=== PATIENT | female | born 1985 | race Caucasian/White ===

== ENCOUNTER 2016-08-04 11:20 | Inpatient (IN) | payer BC ==
[~2016-08-04] VITALS: Ht 160 cm; Wt 78.9 kg
--- NOTE | ~2016-08-04 | FD ---
ADMIT: 08/04/2016 RM/LOC: 221 [facility] MR#: [id number] [id number] [address] KITA BAIG [address] [place], [place] [id number] Final Diagnosis SEX: F AGE: 30 : 1985 ADMISSION DATE: 08/04/2016 DISCHARGE DATE: 08/06/2016 FINAL DIAGNOSES: Status post spontaneous vaginal delivery at term. PROCEDURE: 08/04/2016 Spontaneous vaginal delivery with delivery of viable male , 8 lb 10 oz, Apgars 8/9. Key Griggs MD/ betty JOB #: [id number] CC: Leandra Valente MD, Attending Physician FAMILY PHYSICIAN, Family Physician
--- NOTE | ~2016-08-04 | HP ---
ADMIT: 08/04/2016 RM/LOC: 221 [facility] MR#: [id number] [address] [address] EHSAN BAIGDuc Larry [address] [place], [place] [address] History and Physical SEX: F AGE: 30 : 1985 DATE OF SERVICE: CHIEF COMPLAINT: Uterine contractions. HISTORY OF PRESENT ILLNESS: This is a 30-year-old female, 2, para 1-0- 0-1, who presents to the [facility] with an intrauterine at 38- 3/7th weeks' gestation with estimated date of confinement of 08/15/2016. Her estimated date of confinement is based off last menstrual period and consistent with an 8-week ultrasound. She presented with complaints of uterine contractions, increasing in frequency and intensity. Her was complicated by history of macrosomia. At the time of initial evaluation, she was noted to be 6 cm dilated, and therefore admitted for labor. LABORATORY DATA: Blood type is O positive. Antibody screen negative. Hepatitis B surface antigen negative. RPR nonreactive. Rubella immune. HIV negative. Gonorrhea/Chlamydia is negative. Quad screen is normal. Diabetic screen 106. Group B strep is negative. PAST MEDICAL HISTORY: She denies hypertension, diabetes, asthma, kidney, or thyroid disease. PAST SURGICAL HISTORY: None. SOCIAL HISTORY: She is . She denies tobacco, alcohol, or drug use. ALLERGIES: NO KNOWN DRUG ALLERGIES. CURRENT MEDICATIONS: 1. vitamins. 2. Nexium. PAST OBSTETRICAL HISTORY: She had 1 term spontaneous vaginal delivery, that baby weighed 9 pounds 5 ounces. PHYSICAL EXAMINATION: VITAL SIGNS: Temperature 96.9, blood pressure 138/74, pulse 93, respirations 20. GENERAL: This is a pleasant female, in no acute distress. HEENT: Head is normocephalic, atraumatic. Pupils are equal, round, react to light and accommodation. Extraocular muscles are intact. NECK: Supple. HEART: Regular rate and rhythm. LUNGS: Clear bilaterally. ABDOMEN: Soft, nontender, nondistended, gravid. EXTREMITIES: Nontender. heart tones are 120s at baseline, moderate variability is present, 15 x ADMIT: 08/04/2016 RM/LOC: 221 [facility] MR#: [id number] [id number] [address] SOURAV BAIGNAI [address] [place] [address] History and Physical SEX: F AGE: 30 : 1985 15 accelerations are present, decelerations are absent, uterine contractions are every 5 minutes. Her cervix is 6 cm, 80% effaced, -1 station. Fetus is vertex. IMPRESSION: 1. This is a 30-year-old female, 2, para 1, with an intrauterine at 38-3/7th weeks' gestation in active labor. 2. Group B Streptococcus negative. PLAN: At this time, we do plan to admit the patient. We will augment as needed, treat her pain as she desires and anticipate a spontaneous vaginal delivery. Key Griggs MD/ lizzy JOB #: [id number] CC: eLandra Valente, Attending Physician FAMILY PHYSICIAN, Family Physician
[2016-08-08] MEDS ORDERED: TYLENOL #3 DPS1 TAB PO (13:17)
[2016-08-08] MEDS ORDERED: NIPPLECREAM TP (13:17)
[2016-08-08] MEDS ORDERED: PRENATAL VIT1 TAB PO (13:17)
[2016-08-08] MEDS ORDERED: MOTRIN-DPS800 MG PO (13:17)
--- NOTE | 2016-08-26 09:02 | OR ---
ADMIT: 08/04/2016 RM/LOC: 221 [facility] MR#: [id number] [address] [address] KITA BAIG [address] [place] [address] Operative/Delivery Room Report SEX: F AGE: 30 : 1985 SURGERY DATE: 08/04/2016 SURGEON: Key Griggs MD PREOPERATIVE DIAGNOSES: 1. Intrauterine at 38 and 3/7th weeks' gestation. 2. Active labor. 3. Group B streptococcus negative. POSTOPERATIVE DIAGNOSES: 1. Intrauterine at 38 and 3/7th weeks' gestation. 2. Active labor. 3. Group B streptococcus negative. 4. Delivery of a viable male at 1847 hours weighing 8 pounds 10 ounces with scores of 8 at 1 minute, 9 at 5 minutes. PROCEDURE: Spontaneous vaginal delivery with repair of first-degree laceration. ANESTHESIA: Epidural. COMPLICATIONS: None. ESTIMATED BLOOD LOSS: 250 mL. FLUIDS: Crystalloid. INDICATIONS: This is a 30-year-old female, 2, para 1, who presented to the Birthing Center with an intrauterine at 38 and 3/7th weeks' gestation in active labor. Her was complicated by history of macrosomia. She was 6 cm at the time of admission. She did request and receive an epidural for pain control. She progressed to be complete, at which time she was allowed to push bringing the infant's vertex to the perineum. DESCRIPTION OF PROCEDURE: The patient was noted to be complete. She was placed in the dorsal lithotomy position and prepped and draped in usual sterile fashion. She was asked to push and delivered the 's vertex in the left occiput anterior position over the midline. Nuchal cord was checked, ADMIT: 08/04/2016 RM/LOC: 221 [facility] MR#: [id number] [address] KITA BAIG [address] [place] [address] Operative/Delivery Room Report SEX: F AGE: 30 : 1985 none was noted. The anterior shoulder delivered easily followed by the posterior shoulder and the remainder of the . The was placed on the mother's abdomen where nursing personnel were in attendance. He did have spontaneous cry and movement of all 4 extremities. After 3 minutes, the cord was clamped x2 and cut by the father. Cord blood was obtained. Twenty units of Pitocin were infused with IV fluids to help firm the uterus. The placenta delivered intact spontaneously. The uterus was not explored. Examination of the cervix and vaginal vault did not reveal any lacerations. Examination of the perineum revealed a small first-degree laceration. This was repaired using 3-0 Vicryl in the usual fashion. The patient tolerated the procedure well. Sponge, needle, and instrument counts were correct. The patient did recover in her Labor and Delivery suite with her . Key Griggs MD/ lizzy JOB #: [id number] CC: Leandra Valente, Attending Physician NO FAMILY PHYSICIAN, Family Physician
== END 2016-08-06 18:45 | disposition home or self-care (01) | DRG 775 ==
LOC: 2LDRP 11:20 → BC 11:20 → 2LDRP 12:08 → BC 08-15 08:00
PROVIDERS: ADMIT Obstetrics & Gynecology
PROC: 0HQ9XZZ Repair Perineum Skin, External Approach (ICD-10-PCS; principal; 2016-08-04)
PROC: 10E0XZZ Delivery of Products of Conception, External Approach (ICD-10-PCS; principal; 2016-08-04)
DX: O70.0 First degree perineal laceration during delivery (principal); Z37.0 Single live birth; Z3A.38 38 weeks gestation of pregnancy

== ENCOUNTER → 2016-10-20 | Outpatient (CLI) | payer BC ==
[~2016-10-20] MED LIST: MOTRIN-DPS800 MG PO; NIPPLECREAM TP; PRENATAL VIT1 TAB PO; TYLENOL #3 DPS1 TAB PO
== END | disposition home or self-care (01) ==
LOC: RAD.S 13:00
DX: N63 Unspecified lump in breast (principal)